=== PATIENT | female | born 1955 | race Caucasian/White ===

== ENCOUNTER 2019-01-02 10:17 | Outpatient (CLI) | payer OTHER | END 2019-01-02 10:22 | disposition home or self-care (01) | LOC: SONOGRAMA 10:17 | DX: E04.1 Nontoxic single thyroid nodule (principal) ==

== ENCOUNTER 2022-01-30 10:42 | Outpatient (CLI) | payer OTHER | END 2022-01-30 10:45 | disposition home or self-care (01) | LOC: SONOGRAMA 10:42 | PROVIDERS: ATTEND Pathology Anatomic Pathology | DX: E04.2 Nontoxic multinodular goiter (principal) ==